=== PATIENT | female | born 1960 | race Caucasian/White ===

== ENCOUNTER 2020-03-19 08:35 | Emergency (ER) | payer MEDICAID, OTHER ==
[~2020-03-19] VITALS: Ht 160 cm; Wt 58.1 kg
[2020-03-19] MEDS ORDERED: BUTA-198 (08:40)
[2020-03-19] MEDS ORDERED: PERCOCET 5MG/325MG TAB PO ONE (09:00)
--- NOTE | 2020-03-19 09:21 | REP ---
Clinical: Trauma. Technique: Internal rotation, external rotation, and Y view of the right shoulder. Findings: There is a curvilinear nondisplaced fracture involving the greater tuberosity consistent with fracture likely avulsion fracture. There is no evidence for dislocation. Acromioclavicular joint is intact. Impression: Curvilinear fracture involving the greater tuberosity of the humeral head. Electronically Signed by Perfecto Santos MD 03/19/2020 09:12 A
[2020-03-19] MEDS ORDERED: NORC1TAB7 PO (10:34)
[2020-03-19 10:48] VITALS: BP 144/75
== END 2020-03-19 10:50 | disposition home or self-care (01) ==
LOC: M ED 08:35
DX: S42.291A Other displaced fracture of upper end of right humerus, initial encounter for closed fracture (principal); W01.198A Fall on same level from slipping, tripping and stumbling with subsequent striking against other object, initial encounter; Y92.018 Other place in single-family (private) house as the place of occurrence of the external cause; Z88.5 Allergy status to narcotic agent; F17.210 Nicotine dependence, cigarettes, uncomplicated